=== PATIENT | female | born 1955 | race Caucasian/White ===

== ENCOUNTER 2017-10-14 17:49 | Emergency (ER) | payer BC ==
[~2017-10-14] VITALS: Ht 160 cm; Wt 77.1 kg
[2017-10-14 18:17] LABS: Source, Urine Clean Catch
[2017-10-14] MEDS ORDERED: BACL10 PO (18:24)
[2017-10-14] MEDS ORDERED: QUET100 PO (18:25)
[2017-10-14] MEDS ORDERED: QUET25 PO (18:25)
[2017-10-14] MEDS ORDERED: LANS15EC PO (18:26)
[2017-10-14] MEDS ORDERED: TIZANIDINE HCL4 MG PO (18:26)
[2017-10-14] MEDS ORDERED: PARO30 PO (18:26)
[2017-10-14] MEDS ORDERED: ZOLP12.5 PO (18:26)
[2017-10-14 18:27] LABS: BASOPHILS ABSOLUTE AUTO 0.02 K/mm3 (0.00-0.23); BASOPHILS PERCENT AUTO 0 % (0-2); EOSINOPHILS PERCENT AUTO 4 % (0-6); Hematocrit 40.6 % (33.0-51.0); Hemoglobin 12.5 g/dL (11.5-16.0); IMMATURE GRAN ABSOLUTE AUTO 0.02 K/mm3 (0.00-0.10); IMMATURE GRAN PERCENT AUTO 0 % (0-1); LYMPHOCYTES ABSOLUTE AUTO 1.24 K/mm3 (0.84-5.20); LYMPHOCYTES PERCENT AUTO 27 % (21-46); MONOCYTES ABSOLUTE AUTO 0.28 K/mm3 (0.16-1.47); MONOCYTES PERCENT AUTO 6 % (4-13); Mean Corpuscular HGB 27.9 pg (26.0-34.0); Mean Corpuscular HGB Conc 30.8 g/dL (31.5-36.5); Mean Corpuscular Volume 91 fL (80-100); Mean Platelet Volume 9.3 fL (9.1-12.4); NEUTROPHILS ABSOLUTE AUTO 2.79 K/mm3 (1.96-9.15); NEUTROPHILS PERCENT AUTO 61 % (41-73); Platelet Count 210 K/mm3 (150-400); RDW Coefficient Variation 13.7 % (11.7-14.2); RDW Standard Deviation 45.6 fL (35.1-46.3); Red Blood Cell Count 4.48 M/mm3 (3.80-5.20); White Blood Cell Count 4.55 K/mm3 (4.00-11.30)
[2017-10-14] MEDS ORDERED: Oxycodone HCl20 M1 PO (18:27)
[2017-10-14 18:54] LABS: Bilirubin, Urine Neg (Neg); Blood, Urine 2+ (Neg); Glucose Qualitative, Urine Neg (Neg); Ketones, Urine Neg (Neg); Leukocyte Esterase, Urine Neg (Neg); Nitrite, Urine Neg (Neg); Protein, Urine Neg (Neg); Urobilinogen, Urine NORM (Normal)
[2017-10-14 19:07] LABS: Alanine Aminotransfer (ALT/SGP 16 U/L (12-78); Albumin, Blood 3.6 g/dL (3.4-5.0); Albumin/Globulin Ratio 0.9 (0.8-1.8); Alk Phos 143 U/L (50-136); Anion Gap 9 mmol/L (6-16); Aspartate Aminotrans (AST/SGOT 15 U/L (12-37); Bilirubin, Total 0.4 mg/dL (0.1-1.0); Blood Urea Nitrogen 21 mg/dL (8-24); Bun/Creatinine Ratio 14.9 (12.0-20.0); CO2, Blood 28 mmol/L (21-32); Chloride, Blood 106 mmol/L (98-108); Creatinine, Blood 1.41 mg/dL (0.40-1.00); Ethanol (Alcohol), Blood, Med <3 mg/dL; Globulin, Blood 3.8 g/dL (2.2-4.0); Glomerular Filtration Rate 40 (60-); Glucose, Blood 100 mg/dL (70-99); Potassium, Blood 4.7 mmol/L (3.5-5.5); Salicylate <1.7 mg/dL (2.8-20.0); Sodium, Blood 143 mmol/L (136-145); Total Protein, Blood 7.4 g/dL (6.4-8.2)
[2017-10-14 19:13] LABS: Acetaminophen, Random <2.0 ug/mL (10.0-30.0)
[2017-10-14 19:33] LABS: Appearance, Urine Clear (Clear); Color, Urine Yellow (P-Yellow)
[2017-10-14 19:34] LABS: Bacteria Few /hpf; Red Blood Cells, Urine 0-2 /hpf (0-2); Squamous Epithelial Cells Few /hpf (Few); White Blood Cells, Urine Not Seen /hpf (0-5)
[2017-10-14 20:39] LABS: U Amphetamine Screen Not Detected; U Barbituate Screen Not Detected; U Benzodiazapine Screen DETECTED; U Buprenorphine Screen Not Detected; U Cannabinoids Screen Not Detected; U Cocaine Screen Not Detected; U Methadone Screen Not Detected; U Methamphetamine Screen Not Detected; U Opiates Screen Not Detected; U Oxycodone Screen DETECTED; U Phencyclidine Screen Not Detected; U Propoxyphene Screen Not Detected
== END 2017-10-14 20:45 | disposition home or self-care (01) ==
LOC: ER 17:49
PROVIDERS: Emergency Medicine
DX: F41.8 Other specified anxiety disorders (principal); F31.9 Bipolar disorder, unspecified; Z79.899 Other long term (current) drug therapy; Z79.02 Long term (current) use of antithrombotics/antiplatelets
CPT/HCPCS: 80053; 81001; 84443; 85025; 87086; 99284; G0480

== ENCOUNTER 2019-10-15 12:11 | Emergency (ER) | payer SELFPAY ==
[~2019-10-15] VITALS: Ht 149.9 cm; Wt 72.1 kg
[~2019-10-15 12:11] MED LIST: BACL10 PO; LANS15EC PO; Oxycodone HCl20 M1 PO; PARO30 PO; QUET100 PO; QUET25 PO; TIZANIDINE HCL4 MG PO; ZOLP12.5 PO
[2019-10-15 13:05] LABS: BASOPHILS ABSOLUTE AUTO 0.04 K/mm3 (0.00-0.23); BASOPHILS PERCENT AUTO 0 % (0-2); EOSINOPHILS ABSOLUTE AUTO 0.16 K/mm3 (0.00-0.68); EOSINOPHILS PERCENT AUTO 1 % (0-6); Hematocrit 45.4 % (33.0-51.0); IMMATURE GRAN ABSOLUTE AUTO 0.06 K/mm3 (0.00-0.10); IMMATURE GRAN PERCENT AUTO 1 % (0-1); LYMPHOCYTES ABSOLUTE AUTO 1.59 K/mm3 (0.84-5.20); LYMPHOCYTES PERCENT AUTO 13 % (21-46); MONOCYTES ABSOLUTE AUTO 0.54 K/mm3 (0.16-1.47); MONOCYTES PERCENT AUTO 5 % (4-13); Mean Corpuscular HGB 28.3 pg (26.0-34.0); Mean Corpuscular HGB Conc 30.8 g/dL (31.5-36.5); Mean Corpuscular Volume 92 fL (80-100); NEUTROPHILS ABSOLUTE AUTO 9.73 K/mm3 (1.96-9.15); NEUTROPHILS PERCENT AUTO 80 % (41-73); RDW Coefficient Variation 15.5 % (11.7-14.2); RDW Standard Deviation 52.1 fL (35.1-46.3); Red Blood Cell Count 4.95 M/mm3 (3.80-5.20); White Blood Cell Count 12.12 K/mm3 (4.00-11.30)
[2019-10-15 13:17] LABS: Alanine Aminotransfer (ALT/SGP 41 U/L (12-78); Albumin, Blood 3.9 g/dL (3.4-5.0); Alk Phos 102 U/L (50-136); Anion Gap 6 mmol/L (6-16); Aspartate Aminotrans (AST/SGOT 34 U/L (12-37); Bilirubin, Total 0.6 mg/dL (0.1-1.0); Blood Urea Nitrogen 17 mg/dL (8-24); Bun/Creatinine Ratio 20.2 (12.0-20.0); CO2, Blood 27 mmol/L (21-32); Calcium, Blood 9.4 mg/dL (8.5-10.1); Chloride, Blood 107 mmol/L (98-108); Creatinine, Blood 0.84 mg/dL (0.40-1.00); Globulin, Blood 3.8 g/dL (2.2-4.0); Glomerular Filtration Rate >60 (60-); Glucose, Blood 127 mg/dL (70-99); Potassium, Blood 4.4 mmol/L (3.5-5.5); Sodium, Blood 140 mmol/L (136-145); Total Protein, Blood 7.7 g/dL (6.4-8.2)
[2019-10-15 14:05] LABS: Mean Platelet Volume 10.8 fL (9.1-12.4); Platelet Count 241 K/mm3 (150-400)
[2019-10-15 16:11] LABS: Source, Urine Clean Catch
[2019-10-15 16:14] LABS: Appearance, Urine Clear (Clear); Bilirubin, Urine Neg (Neg); Blood, Urine 1+ (Neg); Color, Urine Yellow (P-Yellow); Glucose Qualitative, Urine Neg (Neg); Ketones, Urine 4+ (Neg); Leukocyte Esterase, Urine 1+ (Neg); Nitrite, Urine Neg (Neg); Protein, Urine 1+ (Neg); Urobilinogen, Urine NORM (Normal)
[2019-10-15 16:21] LABS: Squamous Epithelial Cells Mod /hpf (Few)
[2019-10-15 16:22] LABS: Bacteria Few /hpf; Mucus Mod (0-Heavy)
[2019-10-15] MEDS ORDERED: PROM25 PO (16:40)
== END 2019-10-15 17:29 | disposition home or self-care (01) ==
LOC: ER 12:11
PROVIDERS: Physician Assistant
DX: R10.9 Unspecified abdominal pain (principal); F41.9 Anxiety disorder, unspecified; Z79.899 Other long term (current) drug therapy; Z79.891 Long term (current) use of opiate analgesic; F31.9 Bipolar disorder, unspecified
CPT/HCPCS: 36415; 80053; 81001; 83690; 85025; 87086; 96361; 96374; 96375; 99283-25; C9113; J2405; J2550; J7030

== ENCOUNTER 2020-08-08 12:51 | Observation (INO) | payer MEDICARE ==
[~2020-08-08] VITALS: Ht 149.9 cm; Wt 78.5 kg
[~2020-08-08 12:51] MED LIST changes: +PROM25 PO
[2020-08-08 13:26] LABS: BASOPHILS ABSOLUTE AUTO 0.05 K/mm3 (0.00-0.23); BASOPHILS PERCENT AUTO 0 % (0-2); EOSINOPHILS ABSOLUTE AUTO 0.17 K/mm3 (0.00-0.68); EOSINOPHILS PERCENT AUTO 1 % (0-6); Hematocrit 42.4 % (33.0-51.0); Hemoglobin 13.4 g/dL (11.5-16.0); IMMATURE GRAN ABSOLUTE AUTO 0.08 K/mm3 (0.00-0.10); IMMATURE GRAN PERCENT AUTO 1 % (0-1); LYMPHOCYTES ABSOLUTE AUTO 1.38 K/mm3 (0.84-5.20); LYMPHOCYTES PERCENT AUTO 10 % (21-46); MONOCYTES ABSOLUTE AUTO 1.12 K/mm3 (0.16-1.47); MONOCYTES PERCENT AUTO 8 % (4-13); Mean Corpuscular HGB 29.5 pg (26.0-34.0); Mean Corpuscular HGB Conc 31.6 g/dL (31.5-36.5); Mean Corpuscular Volume 93 fL (80-100); Mean Platelet Volume 8.7 fL (9.1-12.4); NEUTROPHILS ABSOLUTE AUTO 11.79 K/mm3 (1.96-9.15); NEUTROPHILS PERCENT AUTO 81 % (41-73); Platelet Count 225 K/mm3 (150-400); RDW Coefficient Variation 13.1 % (11.7-14.2); RDW Standard Deviation 44.7 fL (35.1-46.3); Red Blood Cell Count 4.55 M/mm3 (3.80-5.20); White Blood Cell Count 14.59 K/mm3 (4.00-11.30)
[2020-08-08 13:52] LABS: Alanine Aminotransfer (ALT/SGP 25 U/L (12-78); Alk Phos 133 U/L (50-136); Anion Gap 6 mmol/L (6-16); Aspartate Aminotrans (AST/SGOT 29 U/L (12-37); Bilirubin, Total 0.3 mg/dL (0.1-1.0); Blood Urea Nitrogen 13 mg/dL (8-24); Bun/Creatinine Ratio 14.9 (12.0-20.0); CO2, Blood 28 mmol/L (21-32); Chloride, Blood 102 mmol/L (98-108); Creatinine, Blood 0.88 mg/dL (0.40-1.00); Globulin, Blood 3.9 g/dL (2.2-4.0); Glomerular Filtration Rate >60 (60-); Glucose, Blood 100 mg/dL (70-99); Potassium, Blood 4.5 mmol/L (3.5-5.5); Sodium, Blood 136 mmol/L (136-145); Total Protein, Blood 7.9 g/dL (6.4-8.2); Troponin I <0.015 ng/mL (0.000-0.040)
[2020-08-08] MEDS ORDERED: TIZA4 PO (15:41)
[2020-08-08] MEDS ORDERED: PROP10 PO (15:41)
[2020-08-08] MEDS ORDERED: LAMO25 PO (15:41)
[2020-08-08] MEDS ORDERED: QUETIAPINE FUM100 M1 PO (15:41)
[2020-08-08] MEDS ORDERED: ATOM25 PO (15:42)
[2020-08-08] MEDS ORDERED: CITA20 PO (15:42)
[2020-08-08] MEDS ORDERED: Oxycodone HCl20 M1 PO (15:42)
[2020-08-08 18:57] LABS: SARS-Cov-2 (COVID-19) PCR, MMC Negative (NEGATIVE)
[2020-08-08 18:58] LABS: Influenza A, PCR Negative (NEGATIVE); Influenza B, PCR Negative (NEGATIVE); Resp Syncytial Virus, PCR Negative (NEGATIVE)
--- NOTE | 2020-08-09 04:46 | NUR ---
DRILL [employer]EMAN SUMMARY PT ARRIVED ON THE FLOOR FROM THE ER W C/O 8/10 PAIN IN HER ABDOMEN SO PROVIDER REHANA WAS CONTACTED AND AN ORDER FOR FENTANYL WAS ENTERED. PT HAS SLEPT FOR MOST OF THE NIGHT WAKING ONCE W C/O PAIN IN HER ABDOMEN AND MEDICATED PER EMAR. NO C/O N/V, WCTM.
[2020-08-09 05:23] LABS: BASOPHILS ABSOLUTE AUTO 0.02 K/mm3 (0.00-0.23); BASOPHILS PERCENT AUTO 0 % (0-2); EOSINOPHILS ABSOLUTE AUTO 0.14 K/mm3 (0.00-0.68); EOSINOPHILS PERCENT AUTO 2 % (0-6); Hematocrit 36.3 % (33.0-51.0); Hemoglobin 11.6 g/dL (11.5-16.0); IMMATURE GRAN ABSOLUTE AUTO 0.04 K/mm3 (0.00-0.10); IMMATURE GRAN PERCENT AUTO 1 % (0-1); LYMPHOCYTES ABSOLUTE AUTO 1.51 K/mm3 (0.84-5.20); LYMPHOCYTES PERCENT AUTO 18 % (21-46); MONOCYTES ABSOLUTE AUTO 0.69 K/mm3 (0.16-1.47); MONOCYTES PERCENT AUTO 8 % (4-13); Mean Corpuscular HGB 30.3 pg (26.0-34.0); Mean Corpuscular Volume 95 fL (80-100); NEUTROPHILS ABSOLUTE AUTO 6.15 K/mm3 (1.96-9.15); NEUTROPHILS PERCENT AUTO 72 % (41-73); Platelet Count 178 K/mm3 (150-400); RDW Coefficient Variation 13.4 % (11.7-14.2); RDW Standard Deviation 46.7 fL (35.1-46.3); Red Blood Cell Count 3.83 M/mm3 (3.80-5.20); White Blood Cell Count 8.55 K/mm3 (4.00-11.30)
[2020-08-09 05:48] LABS: International Normalized Ratio 0.99; Prothrombin Time Results 10.6 Sec (9.7-11.5)
[2020-08-09 05:59] LABS: Alanine Aminotransfer (ALT/SGP 27 U/L (12-78); Albumin, Blood 3.3 g/dL (3.4-5.0); Albumin/Globulin Ratio 0.9 (0.8-1.8); Alk Phos 105 U/L (50-136); Anion Gap 4 mmol/L (6-16); Aspartate Aminotrans (AST/SGOT 30 U/L (12-37); Bilirubin, Total 0.6 mg/dL (0.1-1.0); Blood Urea Nitrogen 11 mg/dL (8-24); Bun/Creatinine Ratio 12.3 (12.0-20.0); CO2, Blood 30 mmol/L (21-32); Calcium, Blood 8.8 mg/dL (8.5-10.1); Chloride, Blood 105 mmol/L (98-108); Globulin, Blood 3.6 g/dL (2.2-4.0); Glomerular Filtration Rate >60 (60-); Glucose, Blood 100 mg/dL (70-99); Potassium, Blood 3.7 mmol/L (3.5-5.5); Sodium, Blood 139 mmol/L (136-145); Total Protein, Blood 6.9 g/dL (6.4-8.2)
--- NOTE | 2020-08-09 10:46 | NUR ---
called asking if he would be able to see pt as soon as procedure was done, refered him to OR
--- NOTE | 2020-08-09 12:29 | NUR ---
called or, stated they would be up to take pt within an hour, informed family of new time and explained that when it came to or things changed a lot, staff arrived and picked up pt, family followed down
--- NOTE | 2020-08-09 12:54 | NUR ---
Patient up to Ambulate independently. Gait steady. History, Chart, Medications and Allergies reviewed before start of procedure.Lungs clear T/O to Auscultation. Patient confirms NPO status and agrees with scheduled surgery. AT BEDSIDE.
--- NOTE | 2020-08-09 18:18 | NUR ---
returned from surgery, states she is feeling fine, denies pain in abdn, bp stayed low called dr who ordered 1000 ns bolus, started, will continue to monitor and treat, sitting up in bed but states she is tired, will share bsr with pt and noc nurse
--- NOTE | 2020-08-09 18:34 | NUR ---
cn recommended NS vs LR so that able to use more volumn, have started bolus, pt walked around and changed clothes but bp still hypotensive, will continue to monitor, pt keeps removing nc so 02 level drops, have explained to pt need for supplemental o2
--- NOTE | 2020-08-10 03:22 | NUR ---
SHIFT SUMMARY PATIENT HAD NO ACUTE CHANGES OBSERVED. AXOX 3 AND INDEPENDENT IN ROOM. [employer] [place]. DENIES PAIN, SOB, AND N/V. PIV REMAINS INTACT, LR INFUSING AT 100 mL/HR. PATIENT USING HER TABLET FIRST PART OF SHIFT. VSS/AFEBRILE. COOPERATIVE WITH CARE. CALL LIGHT IN REACH. BED IN LOWEST POSITION. WILL CONTINUE TO MONITOR UNTIL DAY SHIFT NURSE ASSUMES CARE.
[2020-08-10 05:38] LABS: BASOPHILS ABSOLUTE AUTO 0.01 K/mm3 (0.00-0.23); BASOPHILS PERCENT AUTO 0 % (0-2); EOSINOPHILS ABSOLUTE AUTO 0.01 K/mm3 (0.00-0.68); EOSINOPHILS PERCENT AUTO 0 % (0-6); Hematocrit 33.3 % (33.0-51.0); Hemoglobin 10.1 g/dL (11.5-16.0); IMMATURE GRAN ABSOLUTE AUTO 0.05 K/mm3 (0.00-0.10); IMMATURE GRAN PERCENT AUTO 1 % (0-1); LYMPHOCYTES ABSOLUTE AUTO 0.92 K/mm3 (0.84-5.20); LYMPHOCYTES PERCENT AUTO 11 % (21-46); MONOCYTES ABSOLUTE AUTO 0.56 K/mm3 (0.16-1.47); MONOCYTES PERCENT AUTO 7 % (4-13); Mean Corpuscular HGB 29.2 pg (26.0-34.0); Mean Corpuscular HGB Conc 30.3 g/dL (31.5-36.5); Mean Corpuscular Volume 96 fL (80-100); NEUTROPHILS ABSOLUTE AUTO 6.83 K/mm3 (1.96-9.15); NEUTROPHILS PERCENT AUTO 82 % (41-73); Platelet Count 178 K/mm3 (150-400); RDW Coefficient Variation 13.2 % (11.7-14.2); RDW Standard Deviation 47.1 fL (35.1-46.3); Red Blood Cell Count 3.46 M/mm3 (3.80-5.20); White Blood Cell Count 8.38 K/mm3 (4.00-11.30)
[2020-08-10 06:07] LABS: Anion Gap 5 mmol/L (6-16); Blood Urea Nitrogen 12 mg/dL (8-24); Bun/Creatinine Ratio 13.8 (12.0-20.0); CO2, Blood 28 mmol/L (21-32); Calcium, Blood 8.3 mg/dL (8.5-10.1); Chloride, Blood 107 mmol/L (98-108); Creatinine, Blood 0.87 mg/dL (0.40-1.00); Glomerular Filtration Rate >60 (60-); Glucose, Blood 128 mg/dL (70-99); Potassium, Blood 4.1 mmol/L (3.5-5.5); Sodium, Blood 140 mmol/L (136-145)
[2020-08-10] MEDS ORDERED: ACET325 PO (11:23)
--- NOTE | 2020-08-10 13:08 | NUR ---
PT DISCHARGED AT 1145 WITH ALL PAPERS REVEIEWED AND EDUCATIONAL MATERIAL SENT WITH PT. PT TREATED FOR PAIN PER EMAR. PT ALSO WAS FEELING EMOTIONAL AND PALATIVE CARE WAS CALLED IN PER PT REQUEST AND THIS SEEMS TO HAVE BRIGHTENED HER UP TODAY. PT AOX4 AND COOPERATIVE OF CARE. PT ESCORTED BY THIS TELEPHONE LINEWORKER VIA WHEEL CHAIR.
== END 2020-08-10 11:50 | disposition home or self-care (01) ==
LOC: ER 12:51 → MEDS 12:52 → ENPENDDIS 08-10 09:26 → MEDS 08-10 11:50
PROVIDERS: Family Medicine; Physician Assistant; ADMIT Hospitalist
PROC: 0DTJ4ZZ Resection of Appendix, Percutaneous Endoscopic Approach (ICD-10-PCS; principal; 2020-08-08)
DX: A41.9 Sepsis, unspecified organism (principal); N64.9 Disorder of breast, unspecified; K44.9 Diaphragmatic hernia without obstruction or gangrene; K35.30 Acute appendicitis with localized peritonitis, without perforation or gangrene; F31.9 Bipolar disorder, unspecified; F41.9 Anxiety disorder, unspecified; Z79.899 Other long term (current) drug therapy
CPT/HCPCS: 0241U; 36415; 71260; 74022; 74177; 80048; 80053; 83605; 83690; 84484; 85025; 85610; 85730; 93005; 93010; 96361-59; 96365-59; 96366-59; 96375-59; 99285-25; A9270; A9270-GY; J0295; J0694; J1100; J2250; J2370; J2405; J2704; J3010; J7030; J7120; Q9967

== ENCOUNTER 2023-10-31 15:38 | Emergency (ER) | payer MEDICARE ==
[~2023-10-31] VITALS: Ht 149.9 cm; Wt 75.8 kg
[~2023-10-31 15:38] MED LIST changes: +ACET325 PO; +ATOM25 PO; +CITA20 PO; +LAMO25 PO; +PROP10 PO; +QUETIAPINE FUM100 M1 PO; +TIZA4 PO
[2023-10-31 16:48] VITALS: BP 124/83
[2023-10-31] MEDS ORDERED: METH5 PO (19:30)
[2023-10-31] MEDS ORDERED: DULOXETINE HCL60 M1 PO (19:31)
[2023-10-31] MEDS ORDERED: BUPRENORPHINE TD (19:31)
[2023-10-31] MEDS ORDERED: BUSPIRONE HCL10 M6 PO (19:31)
[2023-10-31] MEDS ORDERED: LAMOTRIGINE100 M1 PO (19:31)
== END 2023-10-31 19:20 | disposition left against medical advice (07) ==
LOC: ER 15:38
DX: Z00.00 Encounter for general adult medical examination without abnormal findings (principal); Z88.5 Allergy status to narcotic agent; Z79.899 Other long term (current) drug therapy; G47.00 Insomnia, unspecified
CPT/HCPCS: 99283

== ENCOUNTER 2024-07-31 18:38 | Emergency (ER) | payer MEDICARE ==
[~2024-07-31] VITALS: Ht 144.8 cm; Wt 59.0 kg
[~2024-07-31 18:38] MED LIST changes: +BUPRENORPHINE TD; +BUSPIRONE HCL10 M6 PO; +DULOXETINE HCL60 M1 PO; +LAMOTRIGINE100 M1 PO; +METH5 PO
[2024-07-31 18:42] VITALS: BP 138/82
[2024-07-31] MEDS ORDERED: Tetracaine HCl/Pf 0.5% Opth Soln 4 ml LEFTEYE ONE (19:35)
[2024-07-31] MEDS ORDERED: Fluorescein Sod 1MG Opth Strips LEFTEYE ONE (19:35)
[2024-07-31] MEDS ORDERED: Erythromycin 0.5% Opth Oint 1 gm LEFTEYE ONE (20:30)
[2024-07-31] MEDS ORDERED: ERYT1OIN LEFTEYE (20:34)
== END 2024-07-31 20:54 | disposition home or self-care (01) ==
LOC: ER 18:38
DX: H57.12 Ocular pain, left eye (principal); G47.00 Insomnia, unspecified; Z79.899 Other long term (current) drug therapy; Z88.5 Allergy status to narcotic agent
CPT/HCPCS: 99283; A9270

== ENCOUNTER 2024-08-25 23:31 | Emergency (ER) | payer MEDICARE ==
[~2024-08-25] VITALS: Ht 157.5 cm; Wt 81.7 kg
[~2024-08-25 23:31] MED LIST changes: +ERYT1OIN LEFTEYE
[2024-08-26 00:15] VITALS: BP 109/46
[2024-08-26] MEDS ORDERED: NS 1,000 ML IV ONE (00:18)
[2024-08-26] MEDS ORDERED: NS 1,000 ML IV SCH (00:20)
== END 2024-08-26 01:27 | disposition home or self-care (01) ==
LOC: ER 23:31
DX: R06.02 Shortness of breath (principal); R42 Dizziness and giddiness; G47.00 Insomnia, unspecified; Z79.899 Other long term (current) drug therapy; Z88.5 Allergy status to narcotic agent
CPT/HCPCS: 71045; 93005; 93010; 99285-25; J7030

== ENCOUNTER 2024-09-03 00:33 | Emergency (ER) | payer MEDICARE ==
[~2024-09-03] VITALS: Ht 154.9 cm; Wt 77.1 kg
[2024-09-03] MEDS ORDERED: Buprenorphine HCL/Naloxone HCL 2-0.5MG 1 EA SL ONE (03:50)
== END 2024-09-03 05:42 | disposition home or self-care (01) ==
LOC: ER 00:33
DX: F11.23 Opioid dependence with withdrawal (principal); Z79.899 Other long term (current) drug therapy; G47.00 Insomnia, unspecified
CPT/HCPCS: 99283; J0572

== ENCOUNTER 2024-11-12 20:34 | Observation (INO) | payer MEDICARE ==
[~2024-11-12] VITALS: Ht 149.9 cm; Wt 78.0 kg
[2024-11-12 22:12] LABS: BASOPHILS ABSOLUTE AUTO 0.02 K/mm3 (0.00-0.23); BASOPHILS PERCENT AUTO 0 % (0-2); EOSINOPHILS ABSOLUTE AUTO 0.26 K/mm3 (0.00-0.68); EOSINOPHILS PERCENT AUTO 3 % (0-6); Hematocrit 36.5 % (33.0-51.0); Hemoglobin 11.8 g/dL (11.5-16.0); IMMATURE GRAN ABSOLUTE AUTO 0.03 K/mm3 (0.00-0.10); IMMATURE GRAN PERCENT AUTO 0 % (0-1); LYMPHOCYTES ABSOLUTE AUTO 1.37 K/mm3 (0.84-5.20); LYMPHOCYTES PERCENT AUTO 17 % (21-46); MONOCYTES ABSOLUTE AUTO 0.44 K/mm3 (0.16-1.47); MONOCYTES PERCENT AUTO 5 % (4-13); Mean Corpuscular HGB 30.3 pg (26.0-34.0); Mean Corpuscular HGB Conc 32.3 g/dL (31.5-36.5); Mean Corpuscular Volume 94 fL (80-100); Mean Platelet Volume 8.9 fL (9.1-12.4); NEUTROPHILS ABSOLUTE AUTO 6.07 K/mm3 (1.96-9.15); NEUTROPHILS PERCENT AUTO 74 % (41-73); Platelet Count 221 K/mm3 (150-400); RDW Coefficient Variation 14.2 % (11.7-14.2); RDW Standard Deviation 48.8 fL (35.1-46.3); White Blood Cell Count 8.19 K/mm3 (4.00-11.30)
[2024-11-12 22:29] LABS: Ethanol (Alcohol), Blood, Med <3 mg/dL; Salicylate <1.7 mg/dL (2.8-20.0)
[2024-11-12 22:39] LABS: Acetaminophen, Random <2.0 ug/mL (10.0-30.0); Alanine Aminotransfer (ALT/SGP 20 U/L (12-78); Albumin, Blood 4.1 g/dL (3.4-5.0); Albumin/Globulin Ratio 1.2 (0.8-1.8); Alk Phos 118 U/L (50-136); Anion Gap 11 mmol/L (3-11); Aspartate Aminotrans (AST/SGOT 15 U/L (12-37); Bilirubin, Total 0.5 mg/dL (0.1-1.0); Blood Urea Nitrogen 14 mg/dL (8-24); Bun/Creatinine Ratio 13.2 (12.0-20.0); CO2, Blood 27 mmol/L (21-32); Calcium, Blood 9.7 mg/dL (8.5-10.1); Chloride, Blood 107 mmol/L (98-108); Creatinine, Blood 1.06 mg/dL (0.40-1.00); Globulin, Blood 3.4 g/dL (2.2-4.0); Glomerular Filtration Rate 56 (60-); Glucose, Blood 105 mg/dL (70-99); Potassium, Blood 4.1 mmol/L (3.5-5.5); Sodium, Blood 141 mmol/L (136-145); Total Protein, Blood 7.5 g/dL (6.4-8.2)
[2024-11-12 22:48] LABS: Source, Urine Clean Catch
[2024-11-12 23:13] LABS: Bilirubin, Urine Neg (Neg); Blood, Urine Neg (Neg); Glucose Qualitative, Urine Neg (Neg); Ketones, Urine Neg (Neg); Leukocyte Esterase, Urine Neg (Neg); Nitrite, Urine Neg (Neg); Protein, Urine Neg (Neg); Urobilinogen, Urine NORM (Normal)
[2024-11-12 23:27] LABS: U Amphetamine Screen Not Detected; U Barbituate Screen Not Detected; U Benzodiazapine Screen DETECTED; U Buprenorphine Screen DETECTED; U Cannabinoids Screen Not Detected; U Cocaine Screen Not Detected; U Methadone Screen Not Detected; U Methamphetamine Screen Not Detected; U Opiates Screen Not Detected; U Oxycodone Screen Not Detected; U Phencyclidine Screen Not Detected
[2024-11-12 23:28] LABS: Appearance, Urine Clear (Clear); Color, Urine Yellow (P-Yellow)
[2024-11-13] MEDS ORDERED: QUEtiapine Fumarate 100 MG Tab PO ONE (00:40)
[2024-11-13] MEDS ORDERED: DULO30 PO (14:47)
[2024-11-13] MEDS ORDERED: BACLOFEN5 M1 PO (14:47)
[2024-11-13] MEDS ORDERED: MELATONIN5 M1 PO (14:49)
[2024-11-13] MEDS ORDERED: QUET100 PO (14:49)
[2024-11-13] MEDS ORDERED: LAMO25 PO (14:51)
[2024-11-13] MEDS ORDERED: BUPRENORPHIN-N1 EAC1 SL (14:51)
[2024-11-13] MEDS ORDERED: Inderal60 MG PO (14:52)
[2024-11-13] MEDS ORDERED: ATOR40TA PO (14:52)
[2024-11-13] MEDS ORDERED: Mag Hydrox/AL Hydrox/Simeth 30 ML UDC PO PRN (14:55)
[2024-11-13] MEDS ORDERED: Baclofen 10 MG Tab PO SCH ×2 (19:45→21:00)
[2024-11-13] MEDS ORDERED: DULoxetine HCL 30 MG Cap DR PO SCH (19:45)
[2024-11-13] MEDS ORDERED: QUEtiapine Fumarate 100 MG Tab PO SCH (21:00)
[2024-11-13] MEDS ORDERED: OLANZapine 5 MG Tab PO SCH (21:00)
[2024-11-13] MEDS ORDERED: Melatonin 5 MG Tablet PO SCH (21:00)
[2024-11-13] MEDS ORDERED: LamoTRIgine 25 MG Tab PO SCH (21:00)
[2024-11-13] MEDS ORDERED: Buprenorphine HCL/Naloxone HCL 8MG-2MG Tab SL SCH (21:00)
[2024-11-14] MEDS ORDERED: Enoxaparin 40 MG/0.4 ML SYR SC SCH
[2024-11-14] MEDS ORDERED: Atorvastatin 40 MG Tab PO SCH (09:00)
[2024-11-14] MEDS ORDERED: Propranolol HCL 60 MG CAPCR PO SCH (09:00)
[2024-11-14] MEDS ORDERED: Ondansetron HCl 2 MG / ML 2ML Vial IV PRN (23:05)
[2024-11-14] MEDS ORDERED: FLU VACC TS2024-25(6MOS UP)/PF 45 MCG/0.5 ML SYRINGE IM ONE (23:05)
[2024-11-15 09:22] VITALS: BP 152/80
[2024-11-15 09:40] LABS: BASOPHILS ABSOLUTE AUTO 0.04 K/mm3 (0.00-0.23); BASOPHILS PERCENT AUTO 1 % (0-2); EOSINOPHILS ABSOLUTE AUTO 0.29 K/mm3 (0.00-0.68); EOSINOPHILS PERCENT AUTO 4 % (0-6); Hematocrit 45.7 % (33.0-51.0); Hemoglobin 14.6 g/dL (11.5-16.0); IMMATURE GRAN ABSOLUTE AUTO 0.06 K/mm3 (0.00-0.10); IMMATURE GRAN PERCENT AUTO 1 % (0-1); LYMPHOCYTES PERCENT AUTO 22 % (21-46); MONOCYTES ABSOLUTE AUTO 0.52 K/mm3 (0.16-1.47); MONOCYTES PERCENT AUTO 7 % (4-13); Mean Corpuscular HGB 30.2 pg (26.0-34.0); Mean Corpuscular HGB Conc 31.9 g/dL (31.5-36.5); Mean Corpuscular Volume 95 fL (80-100); Mean Platelet Volume 9.1 fL (9.1-12.4); NEUTROPHILS ABSOLUTE AUTO 5.04 K/mm3 (1.96-9.15); NEUTROPHILS PERCENT AUTO 66 % (41-73); Platelet Count 258 K/mm3 (150-400); RDW Coefficient Variation 14.5 % (11.7-14.2); RDW Standard Deviation 50.2 fL (35.1-46.3); Red Blood Cell Count 4.83 M/mm3 (3.80-5.20); White Blood Cell Count 7.65 K/mm3 (4.00-11.30)
[2024-11-15 09:58] LABS: Albumin, Blood 4.5 g/dL (3.4-5.0); Albumin/Globulin Ratio 1.1 (0.8-1.8); Bilirubin, Total 0.7 mg/dL (0.1-1.0); Bun/Creatinine Ratio 16.6 (12.0-20.0); Calcium, Blood 9.9 mg/dL (8.5-10.1); Creatinine, Blood 0.97 mg/dL (0.40-1.00); Globulin, Blood 4.1 g/dL (2.2-4.0); Total Protein, Blood 8.6 g/dL (6.4-8.2)
[2024-11-15 10:28] LABS: CORONAVIRUS COVID-19 AG Negative (NEGATIVE); INFLUENZA A AG Negative (NEGATIVE); INFLUENZA B AG Negative (NEGATIVE)
[2024-11-15] MEDS ORDERED: OLAN5 PO (16:42)
== END 2024-11-15 17:30 | disposition home or self-care (01) ==
LOC: ER 20:34 → EOR 20:35
PROVIDERS: Internal Medicine; Student in an Organized Health Care Education/Training Program; ADMIT Emergency Medicine
DX: G30.9 Alzheimer's disease, unspecified (principal); F02.82 Dementia in other diseases classified elsewhere, unspecified severity, with psychotic disturbance; F31.70 Bipolar disorder, currently in remission, most recent episode unspecified; I10 Essential (primary) hypertension; E78.5 Hyperlipidemia, unspecified; Z88.5 Allergy status to narcotic agent; Z79.899 Other long term (current) drug therapy
CPT/HCPCS: 70450; 80053; 80320; 81003; 85025; 87428-QW; 93005; 93010; 96372; 99285-25; A9270; G0378; G0480; J1650

== ENCOUNTER 2024-12-22 15:53 | Observation (INO) | payer MEDICARE ==
[~2024-12-22] VITALS: Ht 152.4 cm; Wt 75.3 kg
[~2024-12-22 15:53] MED LIST changes: +ATOR40TA PO; +BACLOFEN5 M1 PO; +BUPRENORPHIN-N1 EAC1 SL; +DULO30 PO; +Inderal60 MG PO; +MELATONIN5 M1 PO; +OLAN5 PO
[2024-12-22 17:11] LABS: BASOPHILS ABSOLUTE AUTO 0.03 K/mm3 (0.00-0.23); BASOPHILS PERCENT AUTO 0 % (0-2); EOSINOPHILS ABSOLUTE AUTO 0.26 K/mm3 (0.00-0.68); EOSINOPHILS PERCENT AUTO 4 % (0-6); Hematocrit 38.9 % (33.0-51.0); Hemoglobin 12.7 g/dL (11.5-16.0); IMMATURE GRAN ABSOLUTE AUTO 0.03 K/mm3 (0.00-0.10); IMMATURE GRAN PERCENT AUTO 0 % (0-1); LYMPHOCYTES ABSOLUTE AUTO 1.38 K/mm3 (0.84-5.20); LYMPHOCYTES PERCENT AUTO 19 % (21-46); MONOCYTES ABSOLUTE AUTO 0.59 K/mm3 (0.16-1.47); MONOCYTES PERCENT AUTO 8 % (4-13); Mean Corpuscular HGB 30.8 pg (26.0-34.0); Mean Corpuscular HGB Conc 32.6 g/dL (31.5-36.5); Mean Corpuscular Volume 94 fL (80-100); NEUTROPHILS ABSOLUTE AUTO 5.09 K/mm3 (1.96-9.15); NEUTROPHILS PERCENT AUTO 69 % (41-73); Platelet Count 236 K/mm3 (150-400); RDW Coefficient Variation 13.7 % (11.7-14.2); RDW Standard Deviation 47.7 fL (35.1-46.3); Red Blood Cell Count 4.12 M/mm3 (3.80-5.20); White Blood Cell Count 7.38 K/mm3 (4.00-11.30)
[2024-12-22 17:41] LABS: Ethanol (Alcohol), Blood, Med <3 mg/dL
[2024-12-22 17:48] LABS: Alanine Aminotransfer (ALT/SGP 26 U/L (12-78); Albumin, Blood 3.8 g/dL (3.4-5.0); Albumin/Globulin Ratio 1.1 (0.8-1.8); Alk Phos 119 U/L (50-136); Anion Gap 10 mmol/L (3-11); Aspartate Aminotrans (AST/SGOT 25 U/L (12-37); Bilirubin, Total 0.5 mg/dL (0.1-1.0); Blood Urea Nitrogen 14 mg/dL (8-24); Bun/Creatinine Ratio 15.6 (12.0-20.0); CO2, Blood 26 mmol/L (21-32); Calcium, Blood 9.2 mg/dL (8.5-10.1); Chloride, Blood 107 mmol/L (98-108); Globulin, Blood 3.6 g/dL (2.2-4.0); Glomerular Filtration Rate 68 (60-); Glucose, Blood 113 mg/dL (70-99); Potassium, Blood 3.8 mmol/L (3.5-5.5); Sodium, Blood 139 mmol/L (136-145); Total Protein, Blood 7.4 g/dL (6.4-8.2)
[2024-12-22 18:45] LABS: Source, Urine Clean Catch
[2024-12-22 18:50] LABS: Appearance, Urine Clear (Clear); Bilirubin, Urine Neg (Neg); Blood, Urine Neg (Neg); Color, Urine Yellow (P-Yellow); Glucose Qualitative, Urine Neg (Neg); Ketones, Urine Neg (Neg); Leukocyte Esterase, Urine Neg (Neg); Nitrite, Urine Neg (Neg); Protein, Urine Neg (Neg); Urobilinogen, Urine NORM (Normal); pH, Urine 6.5 (5.0-8.0)
[2024-12-22 19:15] LABS: U Buprenorphine Screen DETECTED
[2024-12-22 19:16] LABS: U Amphetamine Screen Not Detected; U Barbituate Screen Not Detected; U Benzodiazapine Screen Not Detected; U Cannabinoids Screen Not Detected; U Cocaine Screen Not Detected; U Methadone Screen Not Detected; U Methamphetamine Screen Not Detected; U Opiates Screen Not Detected; U Oxycodone Screen Not Detected; U Phencyclidine Screen Not Detected
[2024-12-22] MEDS ORDERED: QUEtiapine Fumarate 100 MG Tab PO SCH (22:05)
[2024-12-22] MEDS ORDERED: Buprenorphine HCL/Naloxone HCL 8MG-2MG Tab SL ONE (22:05)
[2024-12-22] MEDS ORDERED: LamoTRIgine 25 MG Tab PO SCH (22:05)
[2024-12-22] MEDS ORDERED: OLANZapine 5 MG Tab PO ONE (22:45)
[2024-12-23] MEDS ORDERED: Ibuprofen 600 MG Tab PO ONE (02:15)
[2024-12-23] MEDS ORDERED: OLANZapine 5 MG Tab PO SCH (09:00)
[2024-12-23] MEDS ORDERED: DULoxetine HCL 30 MG Cap DR PO SCH (09:00)
[2024-12-23] MEDS ORDERED: Buprenorphine HCL/Naloxone HCL 8MG-2MG Tab SL SCH (14:00)
[2024-12-23 14:39] LABS: Influenza A, PCR NEGATIVE (NEGATIVE); Influenza B, PCR NEGATIVE (NEGATIVE); Resp Syncytial Virus, PCR NEGATIVE (NEGATIVE); SARS-Cov-2 (COVID-19) PCR, MMC NEGATIVE (NEGATIVE)
[2024-12-23] MEDS ORDERED: Acetaminophen 325 MG TABLET PO PRN (16:25)
[2024-12-23] MEDS ORDERED: Baclofen 10 MG Tab PO SCH (16:27)
[2024-12-23 20:59] VITALS: BP 127/69
[2024-12-23] MEDS ORDERED: Melatonin 5 MG Tablet PO SCH (21:00)
--- NOTE | 2024-12-24 04:31 | NUR ---
NEW ADMIT/INSIDE SALES ADVERTISING EXECUTIVE SUMMARY PT ADMIT FOR ACUTE PSYCOHSIS AND HX OF DEMENTIA. PT IS A FULL CODE. PT LIVES AT HOME WITH WHO IS NOT LONGER ABLE TO CARE FOR PT. PT ADMIT UNTIL PLACEMENT AT [place] ON 12/26/24. PT TO ROOM AT 2052. SHE TRANSFERED TO BED WITH 1P MIN ASSIST. PT IS ALERT. ORIENTED TO SELF. WITHOUT CONFIDENCE PT WAS ABLE TO STATE WHERE SHE IS AT. PT IS NOT ORIENTED TO CURRENT SITUATION. SPEECH IS CLEAR BUT STATMENTS ARE CONFUSED. PT IS PLEASANT AND COOPERATIVE AT THIS TIME. PT IS ABLE TO FOLLOW DIRECTIONS. ORIENTED TO ROOM AND CALL LIGHT. PT WAS ABLE TO TAKE HER BEDTIME MEDICATIONS. PT EXPRESSING ANXIETY ABOUT DISPOSITION OF HER GLASSES AND FAMILY. PT IS A 1PA WITH FWW. CALL LIGHT ACCESSIBLE. REGULAR INTERVAL ROUNDING CONDUCTED T/O THE SHIFT. PT HAS SLEPT MOST OF THE NIGHT. CARE WILL CONTINUE UNTIL REPORT GIVEN TO ONCOMING NURSE.
[2024-12-24 05:39] VITALS: BP 145/71
[2024-12-24 07:12] VITALS: BP 126/66
[2024-12-24] MEDS ORDERED: Propranolol HCL 60 MG CAPCR PO SCH (09:00)
[2024-12-24] MEDS ORDERED: Enoxaparin 40 MG/0.4 ML SYR SC SCH (09:00)
[2024-12-24 15:11] VITALS: BP 118/64
[2024-12-24 19:11] VITALS: BP 128/65
--- NOTE | 2024-12-24 19:21 | NUR ---
SHIFT SUMMARY PT IS A/OX3, IMPULISVE AT TIMES, EASILY REDIRECTABLE. UP WITH SBA WITH FWW. PT CRYING AND ANXIOUS ABOUT AT TIMES. NO ACUTE CHANGES THROUGHOUT THIS SHIFT. PT CALLS APPROPRIATELY USING THE CALL LIGHT. EXPECTED TO DISCHARGE TO [place] ON THURSDAY.
[2024-12-25 03:29] VITALS: BP 150/65
[2024-12-25 07:09] VITALS: BP 130/68
[2024-12-25 15:37] VITALS: BP 123/76
--- NOTE | 2024-12-25 17:39 | NUR ---
SHIFT SUMMARY PT IS A/OX3, FORGETFUL AT TIMES. PT IS VERY HARD OF HEARING, HEARING AIDS AT HOME. PT IS VERY ANXIOUS AND OFTEN CRYING, AND EXPRESSING CONCERN ABOUT HER AND DOG. NO ACUTE CHANGES THROUGHOUT THIS SHIFT. PT UP IN THE CHAIR FOR MUCH OF THIS SHIFT, SBA WITH FWW. PT PLEASANT AND COOPERATIVE WITH CARE AND CALLING APPROPRIATELY USING THE CALL LIGHT.
[2024-12-25 19:02] VITALS: BP 168/85
[2024-12-25] MEDS ORDERED: Calcium Carbonate 500 MG Tab Chew PO PRN (23:00)
[2024-12-26 03:33] VITALS: BP 155/84
[2024-12-26 06:55] LABS: CHOL/HDL RATIO 2.8; Cholesterol 163 mg/dL (50-200); HDL Cholesterol 59 mg/dL (>39); LDL/HDL RATIO 1.3; Low Density Lipoprotein Chol 76 mg/dL (0-110); Triglycerides 140 mg/dL (30-160); Very Low Density Lipoprot Chol 28 mg/dL (6-32)
[2024-12-26 07:14] VITALS: BP 147/87
[2024-12-26] MEDS ORDERED: Acetaminophen650 M1 PO (15:19)
--- NOTE | 2024-12-26 15:21 | NUR ---
PT WAS TRANSFERED TO [facility] TODAY. PT HAS BEEN AOX2 AND STANDBY ASSIST. PT DOES NOT KNOW WHERE SHE IS OR WHY. EASILY REDIRECTED. PT WAS ABLE TO MAKE NEEDS KNOWN. PT COOPERATIVE OF ALL CARE. RIDE FROM [facility] CAME TO ROOM TO PICK HER UP. PACKET WAS GIVEN. PT ESCORTED OUT TO THEIR TRANSPORT VAN VIA. NO PERSONAL BELONGINGS TO TAKE.
== END 2024-12-26 14:24 | disposition home or self-care (01) ==
LOC: ER 15:53 → MEDS 15:54 → EOR 15:54 → MEDS 12-23 20:54
PROVIDERS: Student in an Organized Health Care Education/Training Program; ADMIT Emergency Medicine
DX: G30.9 Alzheimer's disease, unspecified (principal); F02.82 Dementia in other diseases classified elsewhere, unspecified severity, with psychotic disturbance; F31.9 Bipolar disorder, unspecified; G89.29 Other chronic pain; G47.00 Insomnia, unspecified; Z88.5 Allergy status to narcotic agent; Z79.899 Other long term (current) drug therapy
CPT/HCPCS: 0241U; 36415; 80053; 80061; 80320; 81003; 83036; 84443; 85025; 86592; 96372; 99285; A9270; G0378; J1650

== ENCOUNTER → 2025-04-06 | Outpatient (CLI) | payer MEDICARE ==
[~2025-04-06] MED LIST changes: +Acetaminophen650 M1 PO
[2025-04-06 12:37] LABS: BASOPHILS ABSOLUTE AUTO 0.04 K/mm3 (0.00-0.23); BASOPHILS PERCENT AUTO 1 % (0-2); EOSINOPHILS ABSOLUTE AUTO 0.25 K/mm3 (0.00-0.68); EOSINOPHILS PERCENT AUTO 4 % (0-6); Hematocrit 39.1 % (33.0-51.0); Hemoglobin 12.4 g/dL (11.5-16.0); IMMATURE GRAN ABSOLUTE AUTO 0.05 K/mm3 (0.00-0.10); IMMATURE GRAN PERCENT AUTO 1 % (0-1); LYMPHOCYTES ABSOLUTE AUTO 1.34 K/mm3 (0.84-5.20); LYMPHOCYTES PERCENT AUTO 19 % (21-46); MONOCYTES ABSOLUTE AUTO 0.53 K/mm3 (0.16-1.47); MONOCYTES PERCENT AUTO 8 % (4-13); Mean Corpuscular HGB Conc 31.7 g/dL (31.5-36.5); Mean Corpuscular Volume 93 fL (80-100); NEUTROPHILS ABSOLUTE AUTO 4.88 K/mm3 (1.96-9.15); NEUTROPHILS PERCENT AUTO 69 % (41-73); NRBC ABSOLUTE 0.00 K/mm3 (0.00-0.02); NRBC Auto 0.0 /100 WBC (0.0-0.2); Platelet Count 238 K/mm3 (150-400); RDW Coefficient Variation 13.6 % (11.7-14.2); RDW Standard Deviation 46.2 fL (35.1-46.3)
[2025-04-06 16:21] LABS: Alanine Aminotransfer (ALT/SGP 18.0 U/L (12-78); Albumin, Blood 3.7 g/dL (3.4-5.0); Albumin/Globulin Ratio 1.0 (0.8-1.8); Anion Gap 6.0 mmol/L (3-11); Aspartate Aminotrans (AST/SGOT 13.0 U/L (12-37); Bilirubin, Total 0.5 mg/dL (0.1-1.0); Blood Urea Nitrogen 12.0 mg/dL (8-24); CO2, Blood 32.0 mmol/L (21-32); Calcium, Blood 9.1 mg/dL (8.5-10.1); Chloride, Blood 101.0 mmol/L (98-108); Creatinine, Blood 0.81 mg/dL (0.40-1.00); Globulin, Blood 3.8 g/dL (2.2-4.0); Glucose, Blood 103.0 mg/dL (70-99); Potassium, Blood 4.2 mmol/L (3.5-5.5); Sodium, Blood 135.0 mmol/L (136-145); Total Protein, Blood 7.5 g/dL (6.4-8.2)
== END | disposition home or self-care (01) ==
LOC: LAB SHORT 11:35 → LAB 11:35
PROVIDERS: Student in an Organized Health Care Education/Training Program
DX: F31.81 Bipolar II disorder (principal)
CPT/HCPCS: 80053; 85025

== ENCOUNTER → 2025-07-09 | Outpatient (CLI) | payer MEDICARE, OTHER ==
[2025-07-09 19:30] LABS: Source, Urine Clean Catch
[2025-07-09 19:42] LABS: Bilirubin, Urine Neg (Neg); Color, Urine Yellow (P-Yellow); Glucose Qualitative, Urine Neg (Neg); Ketones, Urine Neg (Neg); Leukocyte Esterase, Urine Neg (Neg); Protein, Urine Neg (Neg); Specific Gravity, Urine 1.005 (1.003-1.022); Urobilinogen, Urine NORM (Normal)
== END | disposition home or self-care (01) ==
LOC: LAB 19:26 → LAB SHORT 19:26
PROVIDERS: Student in an Organized Health Care Education/Training Program
DX: N39.0 Urinary tract infection, site not specified (principal)
CPT/HCPCS: 81003

== ENCOUNTER → 2025-08-31 | Outpatient (CLI) | payer MEDICARE, OTHER ==
[2025-08-31 11:35] LABS: Source, Urine Clean Catch
[2025-08-31 13:09] LABS: Bilirubin, Urine Neg (Neg); Glucose Qualitative, Urine Neg (Neg); Ketones, Urine Neg (Neg); Leukocyte Esterase, Urine Neg (Neg); Protein, Urine Neg (Neg); Specific Gravity, Urine 1.005 (1.003-1.022); Urobilinogen, Urine NORM (Normal)
[2025-08-31 13:40] LABS: Color, Urine Pale Yellow (P-Yellow)
[2025-08-31 13:41] LABS: Red Blood Cells, Urine 0-2 /hpf (0-2); White Blood Cells, Urine 0-2 /hpf (0-5)
== END | disposition home or self-care (01) ==
LOC: LAB 08:30 → LAB SHORT 08:30
PROVIDERS: Student in an Organized Health Care Education/Training Program
DX: N39.0 Urinary tract infection, site not specified (principal)
CPT/HCPCS: 81001